=== PATIENT | female | born 1995 | race Caucasian/White ===

== ENCOUNTER 2018-10-04 21:27 | Emergency (ER) | payer BC ==
[~2018-10-04] VITALS: Wt 143.0 kg
[2018-10-04] MEDS ORDERED: IBUPROFEN 600 MG TAB PO ONE (22:30)
[2018-10-05] MEDS ORDERED: IBUP-1542 PO (00:07)
[2018-10-05 00:19] VITALS: BP 118/70; PULSE 69; RESP 17
--- NOTE | 2018-10-05 01:31 | ERD ---
ER Documentation Chief Complaint Chief Complaint CWP X'S 7 DAYS HPI 23-year-old female with past medical history of anxiety presenting to the emergency department with complaints of left-sided chest pain without radiation intimately for the past 2 weeks. She states the pain lasts for approximately 3 to 4 hours and then spontaneously resolves. She describes the pain as sharp and worse with inspiration. No other symptoms reported at this time. ROS All systems reviewed and are negative except as per history of present illness. Medications Home Meds Active Scripts Ibuprofen* (Motrin*) 600 Mg Tab, 600 MG PO Q6, #30 TAB Prov:MILLIE ALVARADO PA-C 10/05/18 Allergies Allergies: Coded Allergies: No Known Allergy (Unverified , 10/04/18) PMhx/Soc Medical and Surgical Hx: pt denies Medical Hx History of Surgery: No Anesthesia Reaction: No Hx Neurological Disorder: No Hx Respiratory Disorders: No Hx Cardiac Disorders: No Hx Psychiatric Problems: No Hx Miscellaneous Medical Probl: No Hx Alcohol Use: No Hx Substance Use: No Hx Tobacco Use: No Smoking Status: Never smoker FmHx Family History: No diabetes Physical Exam Vitals Vital Signs Date Temp Pulse Resp B/P (MAP) Pulse Ox O2 O2 Flow FiO2 Time Delivery Rate 10/05/18 98.0 69 17 118/70 98 Room Air 00:19 (86) 10/04/18 97.8 89 18 138/88 99 21:32 (105) Physical Exam Const: No acute distress Head: Atraumatic Eyes: Normal Conjunctiva ENT: Normal External Ears, Nose and Mouth. Neck: Full range of motion. No meningismus. Resp: Clear to auscultation bilaterally Cardio: Regular rate and rhythm, no murmurs. Reproducible left-sided chest wall tenderness to palpation. Skin: No petechiae or rashes Ext: No cyanosis, or edema Neur: Awake and alert Psych: Normal Mood and Affect Result Diagram: 10/04/18222410/04/182224 Results 24 hrs Laboratory Tests Test 10/04/18 22:25 White Blood Count 10.9 10^3/ul Red Blood Count 4.68 10^6/ul Hemoglobin 12.1 g/dl Hematocrit 39.1 % Mean Corpuscular Volume 83.5 fl Mean Corpuscular Hemoglobin 25.9 pg Mean Corpuscular Hemoglobin Concent 30.9 g/dl Red Cell Distribution Width 14.1 % Platelet Count 353 10^3/UL Mean Platelet Volume 9.9 fl Immature Granulocytes % 0.300 % Neutrophils % 69.6 % Lymphocytes % 22.8 % Monocytes % 6.1 % Eosinophils % 0.9 % Basophils % 0.3 % Nucleated Red Blood Cells % 0.0 /100WBC Immature Granulocytes # 0.030 10^3/ul Neutrophils # 7.6 10^3/ul Lymphocytes # 2.5 10^3/ul Monocytes # 0.7 10^3/ul Eosinophils # 0.1 10^3/ul Basophils # 0.0 10^3/ul Nucleated Red Blood Cells # 0.0 10^3/ul Sodium Level 142 mmol/L Potassium Level 4.6 mmol/L Chloride Level 106 mmol/L Carbon Dioxide Level 29 mmol/L Anion Gap 7 Blood Urea Nitrogen 13 mg/dl Creatinine 0.83 mg/dl Est Glomerular Filtrat Rate mL/min > 60 mL/min Glucose Level 93 mg/dl Calcium Level 9.8 mg/dl Troponin I < 0.012 ng/ml Current Medications Medications Dose Sig/Aissatou Start Time Status Last (Trade) Ordered Route PRN Stop Time Admin Dose Reason Admin Ibuprofen 600 mg ONCE ONCE 10/04/18 DC 10/04/18 (Motrin) PO 22:30 22:23 10/04/18 22:31 [place] [id number] Radiology Main Line: [phone] DIAGNOSTIC IMAGING REPORT Patient: JED VASQUEZ : 1995 Age: 23 Sex: F MR #: [id number] DOS: 10/04/18 2215 Ordering MD: MILLIE ALVARADO PA-C [facility]: [facility] Room/Bed: PROCEDURE: XR Chest. TECHNIQUE: Single frontal radiograph. CLINICAL INDICATION: Chest Pain. COMPARISON: None. FINDINGS: Moderately low lung volumes. Hemidiaphragms are sharply defined. No evidence of focal consolidation, pneumothorax, or pleural effusion. Cardiomediastinal silhouette is within normal limits. Visualized osseous thorax is unremarkable. Overlying soft tissues are equally unremarkable. IMPRESSION: No evidence of acute cardiopulmonary process, allowing for low lung volumes.. RPTAT: EE Physician Krystina Date Time Electronically viewed and signed by Naima Crawford Physician on 10/04/2018 23:58 BP/ CC: MILLIE ALVARADO PA-C [phone] Procedures/MDM 23-year-old female presented to the emergency department complaining of left- sided chest pain. Differential diagnoses include pneumothorax, pulmonary embolism, acute coronary syndrome, costochondritis, and others. Troponin was within normal limits. Chest x-ray was not concerning for acute abnormalities. The full report interpreted by the radiologist may be viewed above. Patient was administered ibuprofen in the department with good response. EKG: Interpreted by ED physician. Rate/Rhythm: Normal Sinus Rhythm with a rate of 87 bpm. QRS, ST, T-waves: No changes consistent w/ acute ischemia Impression: No evidence of ischemia or arrhythmia After work-up and treatment, she was stable and appropriate for discharge and further outpatient management. She was in agreement with the diagnosis, plan, need for follow-up, return precautions. No evidence of life-threatening pathology at time of discharge. Pt/family in agreement with discharge plan/diagnosis. Pt/family advised to return immediately with any new or worsening symptoms. Follow-up with primary care physician within the next 1-2 days. Patient's blood pressure was elevated (>120/80) but appears stable without evidence of hypertension emergency or urgency. The patient is to follow-up and pursue outpatient monitoring and therapy with their primary care physician within 1 week and return immediately if they have any new, worsening, or concerning symptoms. Disclaimer: Inadvertent spelling and grammatical errors are likely due to EHR/dictation software use and do not reflect on the overall quality of patient care. Also, please note that the electronic time recorded on this note does not necessarily reflect the actual time of the patient encounter. Departure Diagnosis: Primary Impression: Chest pain Condition: Fair Patient Instructions: Chest Wall Pain, Costochondritis Additional Instructions: Call your primary care doctor TOMORROW for an appointment during the next 1-2 days.See the doctor sooner or return here if your condition worsens before your appointment time. MILLIE ALVARADO PA-C October 05, 2018 01:31
--- NOTE | 2018-10-06 14:31 | RADRPT ---
Vent Rate: 87 bpm RR Interval: 0 msec [place] Interval: 126 msec QRS Duration: 80 msec QT Interval: 344 msec QTC Interval: 413 msec P-R-T [place]: 41 - 65 - 17 degrees Normal sinus rhythm Possible Left atrial enlargement Nonspecific T wave abnormality Abnormal ECG Electronically Signed By: [facility]
== END 2018-10-05 00:19 | disposition home or self-care (01) ==
LOC: FTE 21:27
DX: R07.89 Other chest pain (principal)
CPT/HCPCS: 36415; 71045; 80048; 84484; 85025; 93005; Z7502; Z7610